=== PATIENT | female | born 1980 | race Caucasian/White ===

== ENCOUNTER → 2017-05-17 | Day surgery (SDC) | payer OTHER ==
[~2017-05-17] VITALS: Ht 170.2 cm; Wt 116.6 kg
[~2017-05-17] MED LIST: ALDOMET 250MG250 MG PO; IBUPROFEN800 M1 PO; IBUPROFEN800 MG PO; PRENATAL1 TA2 PO; VITAMIN D2000 UNIT PO
--- NOTE | 2017-05-21 11:39 | Operative Report ---
Operative/Inv Procedure Report Surgery Date: 05/17/17 Name of Procedure: D&C hysteroscopy Pre-Operative Diagnosis: Menorrhagia Post-Operative Diagnosis: Same Estimated Blood Loss: scant Surgeon/Nursery Technician: Aster Narayanan MD Anesthesia: moderate sedation Operative/Procedure Note Note: Patient was taken to the operating room placed in dorsal supine position. After adequate anesthesia, patient was prepped and draped for surgery. Examination under anesthesia was performed. CO2 tenaculum was placed on the anterior lip of the cervix gentle downward traction was used. The cervix was dilated 29 Hegar to left insertion of the hysteroscope. Under direct visualization to hysteroscopy was performed using gas hysteroscope was removed and endocervical curettage was performed. And endometrial curettage was performed. All instruments removed from the vagina. The counts were correct the patient was awakened from anesthesia. And transported to recovery room awake and alert. Findings: Slightly enlarged uterus no adnexal masses normal cervix atrophic lining
== END ==
LOC: STS 01:29
DX: N92.0 Excessive and frequent menstruation with regular cycle (principal)
CPT/HCPCS: 81025; J1050; J2250

== ENCOUNTER → 2017-10-18 | Day surgery (SDC) | payer OTHER ==
[~2017-10-18] VITALS: Ht 172.7 cm; Wt 117.9 kg
--- NOTE | 2017-10-18 13:49 | Operative Report ---
Operative/Inv Procedure Report Surgery Date: 10/18/17 Name of Procedure: D&C cryoablation the uterus under ultrasound guidance Pre-Operative Diagnosis: Menorrhagia Post-Operative Diagnosis: Same Estimated Blood Loss: scant Surgeon/Resident Care Manager Rn: Oracio SMITH,Aster Landin Anesthesia: general endotracheal tube Operative/Procedure Note Note: Patient is taken to the operating placed on position after adequate induction of general anesthesia via LMA patient is placed in dorsolithotomy the vagina was prepped and draped in a fashion bladder was catheterized at this point seem to tag was placed on 12:00 on cervix a gentle downward traction services to doing her hair to allow for the insertion of sharp curette the endocervical curettage was performed and then the endometrial curettage performed to specimen sent to pathology at this point the bladder was filled with approximately 400 cc normal saline ultrasound was performed cryoprobe was placed into the uterus under ultrasound guidance at this point approximately 5 minutes and adequate ice ball was formed inside the uterus that I suppose left in place the probe was heated and removed patient tolerates that while she is returned to supine position she is awakened from anesthesia and transferred recovery room awake alert counts correct
--- NOTE | 2017-10-18 15:35 | ULTRASOUND REPORT ---
EXAMINATION: INTRAOPERATIVE ULTRASOUND CLINICAL INDICATION: Cryoablation. Menometrorrhagia. COMPARISON: CT scan of the abdomen and pelvis dated 05/15/2010. TECHNIQUE/FINDINGS: Fluoroscopic equipment was dedicated to the operating room for the performance of an intraoperative procedure. Several (10) images were acquired and are archived in PACS. Please refer to operative notes for procedural detail. IMPRESSION: Administrative dictation for intraoperative fluoroscopy and image archiving in PACS. Please refer to operative notes for details.
== END ==
LOC: STS 02:24
DX: N92.1 Excessive and frequent menstruation with irregular cycle (principal); E66.9 Obesity, unspecified; Z68.39 Body mass index [BMI] 39.0-39.9, adult
CPT/HCPCS: 76998; 81025; 88305; J2250

== ENCOUNTER → 2017-11-29 | Day surgery (SDC) | payer OTHER ==
[~2017-11-29] VITALS: Ht 172.7 cm; Wt 119.7 kg
--- NOTE | 2017-11-29 12:04 | Operative Report ---
Operative/Inv Procedure Report Surgery Date: 11/29/17 Name of Procedure: Open ventral hernia repair with mesh Pre-Operative Diagnosis: Ventral hernia Post-Operative Diagnosis: Same Estimated Blood Loss: scant Surgeon/Still Runner: Karl Shipley MD/Susannah CURRY Anesthesia: general endotracheal tube Implants: 8.4 cm Parietex Operative/Procedure Note Note: After informed consent patient brought to the operating room laid supine. General anesthesia obtained and her abdomen was prepped and draped. Sherman catheter and uterine instrumentation was performed by Dr. Narayanan. There was epigastric hernia and coexisting small umbilical hernia. We infiltrated the tissues over the epigastric hernia which was 3 cm superior to the umbilical stalk. Transverse incision made sharply and subtenons tissue dissected with cautery. We encountered a hernia sac which was circumferentially dissected down to the level of fascia with cautery. The hernia was then reduced. Stay sutures were placed and the hernia sac opened sharply to place a Thurman port. Pneumoperitoneum was achieved. I then turned the operation to Dr. Narayanan who performed laparoscopic tubal sterilization. After completion of the laparoscopic procedure, I then took over again. Preperitoneal planes around the ventral defect created with blunt and cautery dissection. We dissected free the umbilical defect through the supraumbilical defect. I chose an 8 cm mesh to cover both defects, centering it a little below the superior/ventral hernia. This allowed adequate overlay of mesh to the umbilicus. Once I was happy with the placement of mesh the fascia was closed over it incorporating the anterior portion to keep it centered using 0 Maxon sutures. Wound was then irrigated with saline and tissues closed with absorbable sutures. Sterile dressings were applied. Sponge needle counts are correct. CC: Hung SMITH,Antonio Hilliard
--- NOTE | 2017-11-29 12:06 | Operative Report ---
Operative/Inv Procedure Report Surgery Date: 11/29/17 Name of Procedure: Laparoscopic tubal sterilization through an open port Pre-Operative Diagnosis: multiparity Post-Operative Diagnosis: Same Estimated Blood Loss: scant, less than 50ml, 50ml to 100ml, none, n/a Surgeon/High Raw Sugar Boiler: Aster Narayanan MD Anesthesia: general endotracheal tube, block Operative/Procedure Note Note: Procedure patient was taken the operating room placed prone position after adequate induction general anesthesia via endotracheal tube patient was placed in dorsolithotomy position the vagina from dorsal fashion bladder was catheterized examination under anesthesia performed CO2 tenaculum was placed on the Intralipid cervix gentle downward traction Mireles cannula was left in place patient tolerated that well at this point on the surgeon regowned and gloved on Dr. Shipley place a port for open laparoscopy. At this point the laparoscope was placed through that port the abdomen was insufflated with approximate 4 L of CO2 on a 5 mm port was placed 2 fingerbreadths of symptoms pubis in the midline through that port a Kleppinger was placed the right tube was picked up possibly 7 cm that tube was Bovie coagulated left tube was picked up carried to its fimbriated end approximately 7 cm that tube Bovie coag the patient tolerated that well on maximal CO2 was removed from the abdomen at this point Dr. Shipley resume surgery the Mireles cannula was removed tip intact from the vagina and the Sherman was removed on the patient's vagina was hemostatic
== END ==
LOC: STS 01:41
DX: Z30.2 Encounter for sterilization (principal); K43.9 Ventral hernia without obstruction or gangrene; K42.9 Umbilical hernia without obstruction or gangrene
CPT/HCPCS: 81025; C1781; J0690